=== PATIENT | male | born 1980 | race Caucasian/White ===

== ENCOUNTER 2023-12-29 14:14 | Emergency (ER) | payer OTHER ==
[~2023-12-29] VITALS: Ht 180.3 cm; Wt 77.1 kg
[2023-12-29 14:30] VITALS: TEMP 98.8
[2023-12-29] MEDS ORDERED: HYDROCODONE/APAP 5/325MG TABLET ONE (16:08)
[2023-12-29] MEDS ORDERED: IBUPROFEN 600 MG TABLET ONE (16:08)
[2023-12-29] MEDS: IBUPROFEN 600 MG TABLET PO ONE (16:12)
[2023-12-29] MEDS: HYDROCODONE/APAP 5/325MG TABLET PO ONE (16:14)
[2023-12-29 17:48] VITALS: BP 145/87; O2SAT 100
== END 2023-12-29 17:49 | disposition home or self-care (01) ==
LOC: ER 14:19
DX: S63.502A Unspecified sprain of left wrist, initial encounter (principal); S60.812A Abrasion of left wrist, initial encounter; Z60.2 Problems related to living alone; Y04.2XXA Assault by strike against or bumped into by another person, initial encounter; Y93.89 Activity, other specified; Y92.89 Other specified places as the place of occurrence of the external cause; Y99.8 Other external cause status
CPT/HCPCS: 73110